=== PATIENT | female | born 1975 | race Caucasian/White ===

== ENCOUNTER 2016-10-19 10:31 | Emergency (ER) | payer OTHER ==
[~2016-10-19] VITALS: Ht 152.4 cm; Wt 53.0 kg
[2016-10-19] MEDS ORDERED: ATIVAN0.5 MG PO (11:09)
[2016-10-19] MEDS ORDERED: ZOFRAN ODT4 MG PO (12:13)
[2016-10-19] MEDS ORDERED: MOTRIN600 MG PO (12:13)
[2016-10-19 12:29] VITALS: BP 125/70
== END 2016-10-19 12:40 | disposition home or self-care (01) ==
LOC: EME 10:31
DX: S06.0X0A Concussion without loss of consciousness, initial encounter (principal); S00.83XA Contusion of other part of head, initial encounter; W22.09XA Striking against other stationary object, initial encounter; Y92.69 Other specified industrial and construction area as the place of occurrence of the external cause; Y99.0 Civilian activity done for income or pay
CPT/HCPCS: 99281; 99284